=== PATIENT | male | born 1940 | race Caucasian/White ===

== ENCOUNTER 2021-08-13 11:41 | Observation (INO) | payer MEDICARE, SELFPAY ==
[2021-08-13] VITALS (28 sets, daily range): BP systolic 117–153; BP diastolic 54–86; PULSE 15–82; RESP 12–98; TEMP 37.6–37.7; O2SAT 94–100; BMI 30.4
--- NOTE | ~2021-08-13 | CT_ITS ---
EXAMINATION: CTA chest abdomen pelvis DATE: 08/13/2021 14:20 INDICATION: Mid back pain. Near syncope. TECHNIQUE: Computed tomographic angiography (CTA) of the chest, abdomen and pelvis was performed with out and with 100 mL Omnipaque-350 intravenous contrast. Volume-rendered 3D-reconstructions of the aor ta and large arteries were constructed by the technologist on a separate workstation. Automated expos ure control and iterative reconstruction technique were employed. The dose-length product was 1400.21 mGy-cm. COMPARISON: 08/23/2017 FINDINGS: Chest: Mild basilar dependent atelectasis in both lungs. No pneumonia, pulmonary edema, pleural effusion or pneumothorax. Heart size is normal. Coronary artery calcifications and change of prior median sternot harriet and coronary artery bypass grafting. No pericardial effusion. Thoracic aorta is normal in caliber . Small amount of scattered atherosclerotic plaque at the thoracic aorta and left subclavian artery w ithout hemodynamically significant stenosis. No dissection. No pathologically enlarged thoracic lymph adenopathy. Small sliding-type hiatal hernia. Mild upper thoracic dextrocurvature. Mild thoracic spon dylosis. Chronic mild anterior wedging at T8-T12. Abdomen and pelvis: Diffuse hepatic steatosis. Tiny calcified gallstone along the dependent wall of the gallbladder. Tiny hepatic calcification at the dome of the liver consistent with old granulomatous disease. Splenomega ly measuring 16.4 cm in maximal length. There are couple tiny pancreatic parenchymal calcifications s uggesting sequela of chronic pancreatitis. Bilateral adrenal glands and left kidney are normal. 9 mm cyst at the interpolar region of the right kidney. Bladder is normal. Bowels including the appendix a re normal. No free intraperitoneal gas or fluid. No pathologically enlarged abdominal or pelvic lymph adenopathy. Mild lumbar spondylosis. There is calcified atherosclerosis without hemodynamically signi ficant stenosis of the normal caliber aorta and many of the other arteries. No aortic dissection. Inc identally noted are accessory bilateral renal arteries supplying the lower poles. IMPRESSION: 1. No acute intrathoracic, abdominal or pelvic process. 2. Normal caliber aorta with small amount of scattered atherosclerotic plaque and no dissection. 3. Small sliding-type hiatal hernia. Reviewed, dictated and finalized at location A. IMPRESSION: 1. No acute intrathoracic, abdominal or pelvic process. 2. Normal caliber aorta with small amount of scattered atherosclerotic plaque a nd no dissection. 3. Small sliding-type hiatal hernia.
--- NOTE | 2021-08-13 11:50 | ECG_ITS ---
Measurements Intervals [place] Rate: 80 P: 44 [place]: 180 QRS: 16 QRSD: 85 T: 75 QT: 379 QTc: 439 Interpretive Statements SINUS RHYTHM MINIMAL Q WAVES- INFERIOR LEADS BORDERLINE T WAVE ABNORMALITY- ANTEROLAT/HIGH LAT LEADS BORDERLINE ECG Electronically Signed On 08-13-2021 12:34:22 CDT by Hima Doe D.O.
[2021-08-13 12:07] LABS: Basophils Absolute Auto 0.1 K/mm3 (0.0-0.1); Basophils Percent Auto 0.8 % (0.2-1.2); Eosinophils Absolute Auto 0.1 K/mm3 (0-0.3); Hemoglobin 13.8 g/dL (14.0-18.0); Immature Granulocyte Absolute 0.04 K/mm3 (0.00-0.031); Immature Granulocyte Percent A 0.4 % (0-0.5); Lymphocytes Absolute Auto 1.03 K/mm3 (0.9-3.2); Lymphocytes Percent Auto 9.7 % (18.3-44.2); Mean Corpuscular HGB Conc 32.9 g/dl (32-36); Mean Corpuscular Hemoglobin 30.3 pg (26-34); Mean Corpuscular Volume 92.1 fl (80-100); Mean Platelet Volume 9.9 fl (7.4-10.4); Monocytes Absolute Auto 0.8 K/mm3 (0.1-0.6); Monocytes Percent Auto 7.4 % (2.6-8.5); Neutrophils Absolute Auto 8.5 K/mm3 (1.3-6.7); Neutrophils Percent Auto 80.7 % (45.5-73.1); Platelet Count Result 179 k/mm3 (150-375); Red Blood Count 4.56 M/mm3 (4.6-6.20); Red Cell Distribution Width 12.7 % (11.5-14.5); White Blood Count 10.6 K/mm3 (4.5-10.0)
[2021-08-13 12:15] LABS: Alanine Aminotransferase 22 U/L (4-50); Albumin Level 4.3 g/dL (3.5-5.1); Alkaline Phosphatase 55 U/L (38-126); Anion Gap 10 mmol/L (8-16); Aspartate Amino Transferase 26 U/L (17-59); Bilirubin,Total 0.7 mg/dL (0.2-1.3); Blood Urea Nitrogen 10 mg/dL (9-20); Calcium 8.7 mg/dL (8.4-10.2); Carbon Dioxide 22 mmol/L (22-30); Chloride 99 mmol/L (98-107); Estimated CRCL calculation 51 ml/min; Estimated Glomerular Filt Rate > 60; Glucose 227 mg/dL (65-110); Potassium 4.1 mmol/L (3.4-5.0); Sodium 131 mmol/L (137-145)
--- NOTE | 2021-08-13 13:59 | ED.DIZZY ---
HPI - Dizziness General Chief Complaint: Dizziness Stated Complaint: flank pain, dizzy Source: patient Mode of arrival: ambulatory Limitations: no limitations History of Present Illness HPI Narrative: Pt was getting out of shower and getting ready to shave when he got warm and felt like he was going to pass out. Pt had pain in his upper back radiating down his right shoulder and arm that started before the spell. Pt sat on toilet for a bit and eventually made it to his recliner and sat for awhile and his symptoms resoved. MD elicited complaint: lightheadedness and near syncope Onset (ago): hour(s) (5) Timing: sudden onset Severity: severe Description: lightheadedness and near-syncope History of similar symptoms: No Exacerbating factors: nothing Relieving factors: rest Associated symptoms: other (back and right arm pain) Related Data Home Medications Medication Instructions Recorded Confirmed gabapentin 900 PO HS 08/13/21 glimepiride 1 mg DAILY 08/13/21 08/13/21 lovastatin 20 mg DAILY 08/13/21 08/13/21 metformin 500 mg BID 08/13/21 08/13/21 metoprolol succinate 25 PO DAILY 08/13/21 Allergies Allergy/AdvReac Type Severity Reaction Status Date / Time No Known Allergies Allergy Verified 08/13/21 11:49 Review of Systems Review of Systems: All systems reviewed & are unremarkable except as noted in HPI and below PMFSH Family History Family History Sibling Patient's sister is in good health Family history of type 2 diabetes mellitus, Onset Age: 48 Patient's sister is , Onset Age: 70 Father Family history of coronary artery disease, Onset Age: 78 Patient's father is , Onset Age: 78 Mother Hypertension, Onset Age: 72 Social History Social History Smoking status: Never smoker Second hand tobacco smoke exposure: No Alcohol intake: never Exam Const: General: no acute distress Orientation/consciousness: patient oriented x3 HENMT: Head: normal to inspection Eyes: Conjunctivae: conjunctivae normal Neck: Neck: normal visual inspection and no meningeal signs Chest: Chest palpation & inspection: normal inspection of the chest Resp: Effort & Inspection: normal respiratory effort Auscultation: clear to auscultation bilaterally Cardio: Rate: regular rate Rhythm: regular rhythm GI: Auscultation: normal bowel sounds Other: non tender no pulsatile mass Back/Spine/Pelvis: Back: no CVA tenderness Skin: General skin exam: normal color Neuro: General: patient oriented x3, moves all extremities, no meningeal signs and no focal motor deficits Extrem: General: normal to inspection and no clubbing, cyanosis or edema Psych: Appearance: grossly normal Mental Status: mental status grossly normal Thought content: Yes Normal thought content present Course Vital Signs Vital signs: Vital Signs Temperature 100 F H 08/13/21 11:43 Pulse Rate 15 L 08/13/21 11:43 Respiratory Rate 98 H 08/13/21 11:43 Blood Pressure 153/86 H 08/13/21 11:43 Pulse Oximetry 99 08/13/21 11:43 Temperature 100 F H 08/13/21 11:43 Pulse Rate 69 08/13/21 14:02 Respiratory Rate 19 08/13/21 14:02 Blood Pressure 117/59 L 08/13/21 14:02 Pulse Oximetry 98 08/13/21 14:02 MDM - Dizziness Lab Data Result diagrams: 08/13/21 11:56 08/13/21 11:56 Labs: Lab Results 08/13/21 08/13/21 08/13/21 Range/Units 11:56 11:56 11:56 WBC 10.6 H (4.5-10.0) K/mm3 RBC 4.56 L (4.6-6.20) M/mm3 Hgb 13.8 L (14.0-18.0) g/dL Hct 42.0 (42.0-52.0) % MCV 92.1 (80-100) fl MCH 30.3 (26-34) pg MCHC 32.9 (32-36) g/dl RDW 12.7 (11.5-14.5) % Plt Count 179 (150-375) k/mm3 MPV 9.9 (7.4-10.4) fl Immature Gran % (Auto) 0.4 (0-0.5) % Neut % (Auto) 80.7 H (45.5-73.1) % Lymph
[2021-08-13 14:47] LABS: INR 1.1; Prothrombin Time 13.6 Seconds (11.1-14.7)
[2021-08-13 14:48] LABS: Partial Thromboplastin Time 34.7 SECONDS (22.3-36.8)
[2021-08-13 15:00] LABS: Troponin I < 0.012 ng/mL (0.000-0.034)
[2021-08-13 15:20] LABS: SARS-CoV-2 RNA PCR Negative
--- NOTE | 2021-08-13 20:30 | PM.IMHP ---
H&P: HPI History of Present Illness Date/Time: 08/13/21 20:30 Chief Complaint: Near-syncope Narrative: This is an 81-year-old male with past medical history significant for coronary artery disease his status post coronary artery bypass grafting, type 2 diabetes mellitus. Patient presents to the emergency room for evaluation after he had episode of right shoulder and arm pain while he was shaving and after having taking a shower he also felt dizzy however did not pass out. Patient has been in his usual state of health up until this moment he denies any nausea, vomiting ,diarrhea ,abdominal pain, chest pain, shortness of breath, PND, orthopnea, leg swelling, calves pain, no syncope. Preliminary workup has been essentially nonrevealing. Patient has been admitted for further evaluation management and treatment. Review of Systems Review of Systems: Right shoulder and arm pain, near syncope. Constitutional: Constitutional: Denies chills, Denies fatigue, Denies fever(s), Denies night sweats and Denies weakness Eyes: Eyes: Denies change in vision ENT: Denies dysphagia, Denies vertigo, Denies nasal congestion, Denies nasal discharge, Denies nasal obstruction and Denies odynophagia Cardiovascular: Cardiovascular: Denies syncope, Denies pedal edema, Denies edema, Denies claudication, Denies leg edema, Reports lightheadedness, Denies radiating jaw, neck or arm pain, Denies palpitations, Denies dyspnea on exertion and Denies orthopnea Respiratory: Respiratory: Denies cough and Denies dyspnea Gastrointestinal: Gastrointestinal: Denies abdominal pain, Denies dyspepsia, Denies heartburn, Denies diarrhea and Denies nausea Genitourinary: Genitourinary: Denies dysuria Musculoskeletal: Musculoskeletal: Denies back pain, Denies arthralgias and Denies joint swelling Integumentary/Breasts: Skin/Breast: Denies dry skin Neurologic: Denies vertigo, Reports dizziness, Denies syncope, Denies focal weakness and Denies Sensory deficit (Neuro) Psychiatric: Psychiatric: Reports no additional psychiatric complaints and Reports as per HPI Endocrine: Endocrine: Denies cold intolerance, Denies heat intolerance, Denies polyphagia, Denies polydipsia and Denies palpitations Hematologic/Lymphatic: Hematologic/Lymphatic: Reports no additional hematologic/lymphatic complaints and Reports as per HPI Allergic/Immunologic: Allergic/Immunologic: Reports no additional allergic/immunologic complaints and Reports as per HPI [facility] Family History Family History Sibling Patient's sister is in good health Family history of type 2 diabetes mellitus, Onset Age: 48 Patient's sister is , Onset Age: 70 Father Family history of coronary artery disease, Onset Age: 78 Patient's father is , Onset Age: 78 Mother Hypertension, Onset Age: 72 Social History Social History Smoking status: Never smoker Second hand tobacco smoke exposure: No Alcohol intake: never Spiritual care concerns: No Meds Home Medications and Allergies Home Medications Medication Instructions Recorded Confirmed Type aspirin [Adult Aspirin] 81 mg PO DAILY 08/13/21 08/13/21 History cholecalciferol (vitamin D3) 50 mcg PO DAILY 08/13/21 08/13/21 History cyanocobalamin (vitamin B-12) 1,000 mcg PO DAILY 08/13/21 08/13/21 History famotidine 20 mg PO BID 08/13/21 08/13/21 History gabapentin 900 mg PO HS 08/13/21 08/13/21 History glimepiride 1 mg DAILY 08/13/21 08/13/21 History losartan 50 mg PO DAILY 08/13/21 08/13/21 History lovastatin 20 mg DAILY 08/13/21 08/13/21 History metformin 500 mg PO BID 08/13/21 08/13/21 History metoprolol succinate 25 mg PO DAILY 08/13/21 08/13/21 History izgorvla-ijr-HC-lycopen-lutein 1 tablet PO DAILY 08/13/21 08/13/21 History [Centrum Silver] omega-3 fatty acids-fish oil [Fish 1 cap PO DAILY
[2021-08-14] VITALS: PULSE 82
[2021-08-14 04:00] VITALS: PULSE 75
[2021-08-14 06:00] VITALS: BP 149/75; PULSE 67; RESP 16; TEMP 37.3; O2SAT 98
[2021-08-14 08:00] VITALS: PULSE 67; RESP 16; O2SAT 98
[2021-08-14] MEDS: LOVASTATIN 20 MG TABLET BY MOUTH (08:50)
[2021-08-14] MEDS: LOSARTAN POTASSIUM 50 MG TABLET PO (08:50)
[2021-08-14] MEDS: METOPROLOL SUCCINATE EXT REL 25 MG TABCR PO (08:50)
[2021-08-14] MEDS: FAMOTIDINE 20 MG TABLET PO (08:50)
[2021-08-14] MEDS: CYANOCOBALAMIN 1,000 MCG TABLET 1000 MCG PO (08:50)
[2021-08-14] MEDS: ASPIRIN 81 MG CHEWABLE TABLET PO (08:50)
[2021-08-14] MEDS: OMEGA 3 POLYUNSAT FATTY ACIDS 1 GM CAP PO (08:50)
[2021-08-14] MEDS: MULTIVITAMINS /C LUTEIN (CENTRUM SILVER) TABLET *BKC 1 TAB PO (08:50)
[2021-08-14] MEDS: CHOLECALCIFEROL 1,000 UNITS TABLET 2000 UNITS PO (08:50)
[2021-08-14 08:56] LABS: Basophils Absolute Auto 0.1 K/mm3 (0.0-0.1); Basophils Percent Auto 0.8 % (0.2-1.2); Eosinophils Absolute Auto 0.1 K/mm3 (0-0.3); Eosinophils Percent Auto 1.9 % (0-4.4); Hematocrit 39.2 % (42.0-52.0); Hemoglobin 13.5 g/dL (14.0-18.0); Immature Granulocyte Absolute 0.03 K/mm3 (0.00-0.031); Immature Granulocyte Percent A 0.4 % (0-0.5); Lymphocytes Absolute Auto 1.16 K/mm3 (0.9-3.2); Lymphocytes Percent Auto 15.6 % (18.3-44.2); Mean Corpuscular HGB Conc 34.4 g/dl (32-36); Mean Corpuscular Hemoglobin 30.6 pg (26-34); Mean Corpuscular Volume 88.9 fl (80-100); Mean Platelet Volume 10.1 fl (7.4-10.4); Monocytes Absolute Auto 0.8 K/mm3 (0.1-0.6); Monocytes Percent Auto 11.1 % (2.6-8.5); Neutrophils Absolute Auto 5.2 K/mm3 (1.3-6.7); Neutrophils Percent Auto 70.2 % (45.5-73.1); Platelet Count Result 184 k/mm3 (150-375); Red Blood Count 4.41 M/mm3 (4.6-6.20); Red Cell Distribution Width 12.6 % (11.5-14.5); White Blood Count 7.4 K/mm3 (4.5-10.0)
[2021-08-14 09:10] LABS: Alanine Aminotransferase 19 U/L (4-50); Albumin Level 4.3 g/dL (3.5-5.1); Alkaline Phosphatase 48 U/L (38-126); Anion Gap 9 mmol/L (8-16); Aspartate Amino Transferase 23 U/L (17-59); Bilirubin,Total 1.1 mg/dL (0.2-1.3); Blood Urea Nitrogen 10 mg/dL (9-20); Calcium 8.7 mg/dL (8.4-10.2); Carbon Dioxide 26 mmol/L (22-30); Chloride 99 mmol/L (98-107); Estimated CRCL calculation 60 ml/min; Estimated Glomerular Filt Rate > 60; Glucose 172 mg/dL (65-110); Potassium 4.1 mmol/L (3.4-5.0); Sodium 134 mmol/L (137-145)
--- NOTE | 2021-08-14 12:06 | PM.DS ---
DS: Admitting Diagnosis Discharge Date 08/14/2021 Admitting Diagnosis Near syncope DS: Discharge Diagnosis Discharge Diagnosis (1) Near syncope: Code(s): R55 - Syncope and collapse Status: Acute Assessment and Plan: This happened while patient was shaving Likely to be vasovagal in nature Continue to monitor -resolved (2) Atherosclerotic heart disease of [place] coronary artery with angina pectoris: Code(s): I25.119 - Atherosclerotic heart disease of [place] coronary artery with unspecified angina pectoris Status: Acute Assessment and Plan: Chest pain-free Continue to monitor (3) Gastro-esophageal reflux disease with esophagitis: Code(s): K21.0 - Gastro-esophageal reflux disease with esophagitis Status: Acute Assessment and Plan: Continue PPI (4) S/P CABG x 4: Code(s): Z95.1 - Presence of aortocoronary bypass graft Status: Acute Assessment and Plan: Continue aspirin, continue statin, continue losartan, continue beta-carla. Continue to monitor (5) Type 2 diabetes mellitus with peripheral neuropathy: Code(s): E11.42 - Type 2 diabetes mellitus with diabetic polyneuropathy Status: Acute Assessment and Plan: Holding metformin and glimepiride Insulin sliding scale as needed DS: Summary Hospital Course Reason for hospitalization: Near syncope Hospital Course: Patient is an 81 old male with a past medical history of CAD status post CABG-3 way, diabetes mellitus type 2, diet controlled. He presented to the emergency department for further evaluation after developing an episode of right shoulder and arm pain while he was shaving and after he was taking a shower. He did become dizzy however he did not pass out. Patient was able to assist himself to a chair and sit down where he was able to regain orientation. Patient has been in his usual state of health up until that moment. He denies any nausea, vomiting upset stomach diarrhea or abdominal pain. He denies any chest pain or shortness of breath orthopnea, leg swelling or other near syncopal episodes. Preliminary workup in the emergency department was unrevealing however the patient was admitted to the hospitalist service for further evaluation. During the patient's hospitalization patient was agreeable to having home health evaluate him at home for further help with physical therapy and occupational therapy. Patient was alert and oriented was able to answer questions appropriately. No further medical needs require during hospitalization. Therefore the patient be discharged home to follow-up with his PCP. Status at Discharge Cognitive/behavioral status at discharge: Alert and oriented x3 Functional status at discharge: independent ambulation Overall status at discharge: patient is back to baseline Time Spent with Patient Time attestation: Total time spent providing and/or coordinating discharge services: Time spent: Less than 30 minutes Exam Narrative: Patient is laying in bed Const: General: cooperative, comfortable, no acute distress, well developed, alert, awake and other (Well-appearing) Nutritional Appearance: average body habitus Orientation/consciousness: patient oriented x3 HENMT: Head: normal to inspection, normocephalic and atraumatic Ears: hearing grossly normal bilaterally General nose exam: Normal external nose present Face and sinus: normal facial exam Mouth: Yes Normal oral and palatal mucosa present Eyes: General: appearance normal, both eyes and all related structures Alignment and Position: alignment normal Sclera: sclerae normal Pupils: Equal, round and reactive pupils present EOM: EOMs intact bilaterally Neck: Neck: normal visual inspection, full ROM, no lymphadenopathy, supple and no JVD Thyroid: thyroid normal Lymphatic: no lymphadenopathy noted Resp: Effort & Inspection: normal respiratory effort and able to speak in complete sentences Auscultation: clear
== END 2021-08-14 13:09 | disposition home health service (06) ==
LOC: ANHED 15:45 → ANH3MEDSUR 08-14 06:46
PROVIDERS: Admitting Provider Internal Medicine; Emergency Provider Emergency Medicine; PCP Internal Medicine; Visit Provider Nurse Practitioner Family
DX: R55 Syncope and collapse (principal); I25.10 Atherosclerotic heart disease of native coronary artery without angina pectoris; E11.9 Type 2 diabetes mellitus without complications; E11.42 Type 2 diabetes mellitus with diabetic polyneuropathy; K21.00 Gastro-esophageal reflux disease with esophagitis, without bleeding; Z95.1 Presence of aortocoronary bypass graft; Z20.822 Contact with and (suspected) exposure to COVID-19
CPT/HCPCS: 36415; 71275; 74174; 80053; 84484; 85025; 85610; 85730; 93005; 99285; A9270; C9803; G0378; Q9967; U0003; U0005

== ENCOUNTER 2022-04-04 15:58 | Observation (INO) | payer MEDICARE, SELFPAY ==
--- NOTE | ~2022-04-04 | MR_ITS ---
MRI of the brain Clinical History: Altered mental status Technique: Axial and sagittal T1-weighted images were acquired. These were followed by axial T2-weigh edgardo, diffusion weighted, gradient, and FLAIR images. Following intravenous administration of 18 cc Mu ltiHance gadolinium, T1-weighted fat-sat imaging was performed in the axial and coronal planes. Findings: There is no acute infarct, intracranial hemorrhage, or mass lesion. There are minimal chron ic white matter changes in the periventricular white matter bilaterally. Ventricles and subarachnoid spaces are minimally dilated. Abnormal signal present within the right ey eball. Left orbit unremarkable. There is left maxillary sinus disease. Remaining paranasal sinuses an d mastoid air cells are clear. Major intracranial flow voids are intact. Sagittal midline structures are intact. No abnormal postcontrast enhancement. IMPRESSION: No acute intracranial abnormality. Left maxillary sinus disease. Abnormal signal right eyeball. Correlate with ophthalmologic history/examination. Reviewed, dictated and finalized at [facility]. CTOR SEMICONDUCTOR IMPRESSION: No acute intracranial abnormality. Left maxillary sinus disease. Abnormal signal right eyeball. Correlate with ophthalmologic history/examhu ramon
--- NOTE | ~2022-04-04 | XR_ITS ---
EXAMINATION: XR chest 2V DATE: 04/05/2022 08:17 INDICATION: Multiple liver nodules. TECHNIQUE: frontal and lateral views of the chest were obtained. COMPARISON: Chest CT dated 04/04/2022 FINDINGS: The lungs remain clear with no focal airspace opacities, pulmonary edema, pleural effusion or pneumot horax. The cardiomediastinal silhouette is normal. Median sternotomy wires and mediastinal surgical c lips are seen, likely from prior coronary artery bypass grafting. Mild anterior wedging of a few lowe r thoracic vertebral bodies. IMPRESSION: 1. No acute cardiopulmonary disease. Reviewed, dictated and finalized at location A. ER
--- NOTE | ~2022-04-04 | CT_ITS ---
EXAMINATION: CT brain wo con DATE: 04/04/2022 18:25 INDICATION: Altered mental status for past 3 months . TECHNIQUE: Computed tomography (CT) of the head was performed without intravenous contrast. The mA wa s adjusted according to patient size. Iterative reconstruction technique was employed. The dose-lengt h product was 605.33 mGy-cm. COMPARISON: None. FINDINGS: No acute intracranial hemorrhage or extra-axial fluid collection. No hydrocephalus, mass, or herniation. No acute ischemic infarct. Unremarkable dural venous sinus attenuation. No acute osseous abnormality. Near complete left maxillary opacification with a nondependent gas bubble, left anterior ethmoid air cell mucosal thickening, the remaining aerated spaces are clear. Moderate atrophy and chronic white matter change. Atherosclerotic intracranial calcification. Right g lobe silicone injection/prosthesis. Bilateral lens replacements. IMPRESSION: No acute intracranial process. Possible acute sinusitis. Reviewed, dictated and finalized at location K. /WAN ENGINEER
--- NOTE | ~2022-04-04 | US_ITS ---
EXAMINATION: US biopsy liver DATE: 04/06/2022 12:13 INDICATION: Multiple liver masses TECHNIQUE: The procedure including the risks and benefits was discussed with the patient. Risks discu ssed included bleeding and infection. The patient understood the risks and agreed to proceed. The sk in overlying the liver was prepped and draped in usual sterile fashion. Anesthetic was administered with 1% lidocaine subcutaneously. An 18 gauge core biopsy needle was advanced under continuous ultra sound observation to the lesion of interest. 3 core biopsy specimens were obtained. The needle was removed and the entry site was cleaned and dressed. Post procedure ultrasound demonstrated no hemorr christa. FINDINGS: Ultrasound images demonstrate multiple hypoechoic masses scattered throughout the liver. Jimenez bsequent images demonstrate biopsy needle advanced into one of the hyperechoic masses in segment 4A o f the liver. Biopsy specimen demonstrated very dark [id number] tissue suspicious for meta static melanoma. IMPRESSION: 1. Successful Ultrasound-guided biopsy of a large hyperechoic mass in segment 4A of the liver yieldin g very dark nearly black-colored tissue suspicious for metastatic melanoma. Reviewed, dictated and finalized at location A. Y APPLICATOR IMPRESSION: 1. Successful Ultrasound-guided biopsy of a large hyperechoic mass in segment 4 A of the liver yielding very dark nearly black-colored tissue suspicious for me tastatic melanoma.
--- NOTE | ~2022-04-04 | CT_ITS ---
EXAMINATION: CT chest abdomen pelvis w con DATE: 04/04/2022 18:42 INDICATION: AMS, TRANSAMINITIS, concern for metastatic dz . TECHNIQUE: Computed tomography (CT) of the chest, abdomen, and pelvis was performed with 100 mL Omnip aque-350 intravenous contrast. Automated exposure control and iterative reconstruction technique were employed. The dose-length product was 1238.62 mGy-cm. COMPARISON: 08/13/2021 FINDINGS: Thoracic aorta: No significant dilation or calcification. Lung parenchyma and airways: Senescent changes. Thoracic inlet, axillae and chest wall: No thyroid or soft tissue mass. No axillary lymphadenopathy. Mediastinum: No mass or lymphadenopathy. Heart and pericardium: Normal heart size. Prior CABG. No pericardial effusion. Coronary artery calcifications: Moderate. Pleura: No effusion or mass. Thoracic bones: No acute osseous finding in the chest. ABDOMEN/PELVIS: Liver: Hepatomegaly. Innumerable hyperenhancing liver masses several of which are large and necrotic. Biliary/Gallbladder: Gallbladder is partially collapsed with mild wall thickening, a nonspecific find ing in the setting of liver disease. Small gallstone. No bile duct dilation. Pancreas: Pancreatic atrophy and chronic calcification. No mass. Spleen: Normal. Adrenals:No mass. Kidneys: No suspicious mass, stone, or hydronephrosis. Small simple right midpole cyst. GI tract: No small or large bowel dilation. Chronic some mucosal fat deposition in the ascending colo n and cecum. Normal appendix. Mesentery/Peritoneum: No mass or free air. Small volume perihepatic and perisplenic fluid. Retroperitoneum: No mass. Atherosclerotic abdominal aortic and/or arterial calcifications. Pelvis: Surgically absent prostate. Lower pelvic surgical clips. Moderate volume free pelvic fluid. Soft Tissues: Mild subcutaneous body wall edema. Abdominopelvic bones: No acute osseous finding in the abdomen/pelvis. IMPRESSION: Hepatomegaly with innumerable hepatic masses, several of which are large and necrotic. No primary sit e identified. Small volume ascites. Reviewed, dictated and finalized at location K. CTOR TRIAL IMPRESSION: Hepatomegaly with innumerable hepatic masses, several of which are large and ne crotic. No primary site identified. Small volume ascites.
--- NOTE | 2022-04-04 15:57 | ECG_ITS ---
Measurements Intervals [place] Rate: 81 P: 181 [place]: 165 QRS: 21 QRSD: 94 T: 11 QT: 350 QTc: 408 Interpretive Statements SINUS RHYTHM LOW-VOLTAGE QRS IN PRECORDIAL LEADS CANNOT RULE OUT INFERIOR MYOCARDIAL INFARCTION , PROBABLY OLD NO PREVIOUS ECG AVAILABLE FOR COMPARISON Electronically Signed On 04-05-2022 16:42:24 OCCUPATIONAL HEALTH COORDINATOR by Ernesto Conklin M.D.
[2022-04-04 15:58] VITALS: BP 147/80; PULSE 81; RESP 18; TEMP 36.2; O2SAT 92
[2022-04-04 16:31] LABS: Basophils Absolute Auto 0.1 K/mm3 (0.0-0.1); Basophils Percent Auto 0.6 % (0.2-1.2); Eosinophils Absolute Auto 0.1 K/mm3 (0-0.3); Eosinophils Percent Auto 1.4 % (0-4.4); Hematocrit 39.5 % (42.0-52.0); Hemoglobin 13.1 g/dL (14.0-18.0); Immature Granulocyte Absolute 0.03 K/mm3 (0.00-0.031); Immature Granulocyte Percent A 0.4 % (0-0.5); Lymphocytes Absolute Auto 0.89 K/mm3 (0.9-3.2); Lymphocytes Percent Auto 11.3 % (18.3-44.2); Mean Corpuscular HGB Conc 33.2 g/dl (32-36); Mean Corpuscular Hemoglobin 30.3 pg (26-34); Mean Corpuscular Volume 91.2 fl (80-100); Monocytes Absolute Auto 0.8 K/mm3 (0.1-0.6); Monocytes Percent Auto 9.6 % (2.6-8.5); Neutrophils Percent Auto 76.7 % (45.5-73.1); Platelet Count Result 175 k/mm3 (150-375); Red Blood Count 4.33 M/mm3 (4.6-6.20); Red Cell Distribution Width 15.2 % (11.5-14.5); White Blood Count 7.9 K/mm3 (4.5-10.0)
[2022-04-04 16:33] LABS: Appearance Urine Slightly Cloudy (Clear); Bilirubin Urine 3+ (Negative); Blood Urine Negative (Negative); Glucose Urine UA Trace mg/dL (Negative); Ketones Urine 1+ mg/dL (Negative); Leukocyte Esterase Ur Negative LEU/UL (Negative); Nitrate Urine Positive (Negative); Protein Urine Trace mg/dL (Negative); Specific Grav Ur 1.025 (1.001-1.035); pH Urine 5.5 (5.0-9.0)
[2022-04-04 16:38] LABS: Bacteria Urine Trace /hpf; Mucus Urine Rare /lpf; RBC Urine 0-2 /hpf (0-2); Squamous Epithelial Cell Urine Rare /hpf (Few); WBC Urine 0-3 /hpf
[2022-04-04 16:39] LABS: Add Urine Microscopic? YES; Color Urine Dark Orange (Yellow)
[2022-04-04 16:42] LABS: Alanine Aminotransferase 245 U/L (6-50); Albumin Level 3.4 g/dL (3.5-5.1); Alkaline Phosphatase 223 U/L (38-126); Anion Gap 3 mmol/L (8-16); Aspartate Amino Transferase 607 U/L (17-59); Bilirubin,Total 5.1 mg/dL (0.2-1.3); Blood Urea Nitrogen 16 mg/dL (9-20); Calcium 10.2 mg/dL (8.4-10.2); Carbon Dioxide 27 mmol/L (22-30); Chloride 98 mmol/L (98-107); Estimated CRCL calculation 55 ml/min; Estimated Glomerular Filt Rate > 60; Glucose 149 mg/dL (65-110); Potassium 3.6 mmol/L (3.4-5.0); Sodium 128 mmol/L (137-145)
[2022-04-04 16:44] LABS: INR 1.2; Partial Thromboplastin Time 36.5 SECONDS (22.3-36.8); Prothrombin Time 14.8 Seconds (11.1-14.7)
--- NOTE | 2022-04-04 18:12 | ED.GENADULT ---
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 Per , patient has been eating solid food less for the past 3 months because it tastes bad. For the last 3 months he has only been drinking water, because other flavored liquids did not taste good. He denied headache, trauma, nausea, vomiting, abdominal pain, chest pain, shortness of breath, dysuria, diarrhea, sick contacts. 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 Past surgical history: CABG, hernia repair Medications: Aspirin, metformin, losartan, metoprolol, gabapentin Allergies: No known drug allergies Social: No smoking, alcohol, recreational drugs Related Data Home Medications Medication Instructions Recorded Confirmed aspirin 81 mg chewable tablet 81 mg PO DAILY 08/13/21 10/07/21 cholecalciferol (vitamin D3) 50 50 mcg PO DAILY 08/13/21 10/07/21 mcg (2,000 unit) capsule cyanocobalamin (vitamin B-12) 1,000 mcg PO DAILY 08/13/21 10/07/21 1,000 mcg tablet glimepiride 2 mg tablet 1 mg DAILY 08/13/21 10/07/21 lovastatin 20 mg tablet 20 mg DAILY 08/13/21 10/07/21 metoprolol succinate 25 mg 25 mg PO DAILY 08/13/21 10/07/21 tablet,extended release 24 hr wxlsmydk-jem-wsvoj acid 0.4 1 tablet PO DAILY 08/13/21 10/07/21 mg-lycopene 300 mcg-lutein 250 mcg tablet (Centrum Silver) omega-3 fatty acids-fish oil 340 1 cap PO DAILY 08/13/21 10/07/21 mg-1,000 mg capsule (Fish Oil) Allergies Allergy/AdvReac Type Severity Reaction Status Date / Time No Known Allergies Allergy Verified 10/07/21 12:20 Review of Systems Review of Systems: See HPI PMFSH Family History Family History Sibling Patient's sister is in good health Family history of type 2 diabetes mellitus, Onset Age: 48 Patient's sister is , Onset Age: 70 Father Family history of coronary artery disease, Onset Age: 78 Patient's father is , Onset Age: 78 Mother Hypertension, Onset Age: 72 Social History Social History Smoking status: Never smoker Second hand tobacco smoke exposure: No Alcohol intake: never Spiritual care concerns: No Comments See HPI Exam Narrative: APPEARANCE: Alert, calm and cooperative, no acute distress, phonating, sitting comfortably during visit, elderly HEAD: atraumatic EYES: Extra ocular movements intact, no conjunctival injection NOSE: Normal no drainage NECK: Supple, without meningismus RESPIRATORY: Lungs clear to auscultation bilaterally, no wheezes/rales/rhonchi, breathing comfortably CARDIOVASCULAR: Regular rate and rhythm, no visible jugular venous distension ABDOMINAL: Soft, nontender, nondistended, no guarding, no rebound/peritoneal signs, no costovertebral tenderness to palpation BACK: no midline tenderness to palpation, no step offs EXTREMITIES: No edema, palpable peripheral pulses, warm, well perfused, no tenderness to bilateral calves. NEURO: Alert and oriented, moving all extremities symmetrically, normal finger nose finger, no pronator drift, 5/5 strength throughout SKIN:: Warm, dry. Normal color PSYCHIATRIC: Normal affect/mood Course Reevaluation(s) Reevaluation #1: CT abdomen pelvis results reviewed, notable for several masses to the liver concerning for metastatic disease, with evidence of cirrhosis and ascites. Patient and family updated on findings, expressed understanding. Recommendation for medical admission for further work-up will be pursued. Family and patient communicated, expressed understanding and amenable fo
[2022-04-04 19:26] VITALS: BP 141/70; PULSE 77; RESP 12; O2SAT 100
[2022-04-04 20:46] VITALS: BP 135/75; PULSE 75; RESP 16; O2SAT 96
[2022-04-04 21:07] LABS: Ammonia < 9 umol/L (9-30)
[2022-04-04 21:26] LABS: SARS-CoV-2 RNA PCR Negative
--- NOTE | 2022-04-04 21:37 | PM.IMHP ---
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 HPI and review medical and surgical history was obtained from review of records, ER report and nursing report. The patient himself is only oriented to self. The patient does seem to realize that he has been more confused ?more recently. The patient's told nursing staff that the patient has been progressively more confused for the last month. He became so confused that he is only oriented to self in the family brought him in for evaluation. He has been having decreased oral intake for the last 3 months. He reports that both food and flavored drinks taste gross. Thusly is only been consuming mostly water. Despite is decreased appetite patient's weight has remained relatively stable in comparison to prior values in August and September. He denied having any abdominal pain but on exam patient had tenderness at the right mid axillary line is an inch below the lower ribs with what feels like hepatomegaly on exam. Patient denies having any diarrhea or changes in bowel habits but again is a difficult historian. He denies any headache or visual changes. He denies any history of CVA. On exam patient did seem to have some mild facial asymmetry with droop of the left side of the face. CT of the head performed in the ER demonstrated no acute intercranial process. Possible acute left maxillary sinusitis but patient does not have any sinus tenderness. Also moderate atrophy and chronic white matter changes as well as right globe silicone prosthesis/injections. In the ER CT of the abdomen pelvis demonstrated in innumerable hepatic masses several of which are large and necrotic. This is surprising given the patient had normal LFTs and normal CTA of the chest abdomen pelvis in August of 2021. Patient also has ketones in his urine and some mild hyponatremia consistent with hyponatremia due to hypovolemia. Patient was admitted in the setting for IV high duration and IR guided liver biopsy. Review of Systems Review of Systems: The patient is unable to provide review of systems. He is only oriented to self. 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 Prostate cancer Type 2 diabetes mellitus with peripheral neuropathy Hemoglobin A1c 6.6% September 2021 Surgical History Surgical History (Updated 04/04/22 @ 21:52 by Serina Cochran DO) History of bilateral inguinal hernia repair (~1967) History of cardiac catheterization Cardiac catheterization 1992 demonstrating modest disease with less than 50% stenosis, repeat catheterization in 2018 demonstrated four-vessel disease patient was referred for CABG, posterior basal wall hypokinesis noted History of melanoma excision Right retina History of prostatectomy (~2004) S/P CABG x 4 (~2018) Cardiac catheterization demonstrating chronic occlusion of RCA 100% with distal [id number] collateral flow to RPDA and RPL, left main stenosis 90%, lad mid size vessel small ramus 99% occluded Family History Family History Sibling Patient's sister is in good health Family history of type 2 diabetes mellitus, Onset Age: 48 Patient's sister is , Onset Age: 70 Father Family history of coronary artery disease, Onset Age: 78 Patient's father is , Onset Age: 78 Mothe
[2022-04-04 21:40] VITALS: BP 133/63; PULSE 73; RESP 17; TEMP 36.3; O2SAT 98
[2022-04-04] MEDS: SODIUM CHLORIDE 0.9% IV 1,000 ML 125 ML IV CONT (22:10)
--- NOTE | 2022-04-04 22:48 | ADMGEN ---
This patient, Israel Donaldson, was admitted to [address] [place] [address] Room 305-02 at 2140. Patient/family oriented to hospital policies and general routines including ID bracelet, bed and alarms, visiting hours, pain management, procedures, bathroom and other care routines, personal items, smoking policy, room service/diet, and visiting hours. Information on how to activate the Rapid Response Team has been discussed. Patient/Family are encouraged to report perceived risks to care and to ask questions if they do not understand what they are told or what they should do.
[2022-04-05] VITALS (9 sets, daily range): BP systolic 130–132; BP diastolic 56–60; PULSE 70–90; RESP 17; TEMP 36.3–36.4; O2SAT 98–99; BMI 29.3
[2022-04-05 07:27] LABS: Alanine Aminotransferase 233 U/L (6-50); Albumin Level 2.9 g/dL (3.5-5.1); Alkaline Phosphatase 186 U/L (38-126); Anion Gap 5 mmol/L (8-16); Aspartate Amino Transferase 535 U/L (17-59); Bilirubin,Total 4.8 mg/dL (0.2-1.3); Blood Urea Nitrogen 15 mg/dL (9-20); Calcium 9.6 mg/dL (8.4-10.2); Carbon Dioxide 24 mmol/L (22-30); Chloride 101 mmol/L (98-107); Estimated CRCL calculation 55 ml/min; Estimated Glomerular Filt Rate > 60; Glucose 77 mg/dL (65-110); Potassium 3.6 mmol/L (3.4-5.0); Sodium 130 mmol/L (137-145)
[2022-04-05 08:46] LABS: Glucose Point of Care 86 mg/dl (65-105)
[2022-04-05 09:13] LABS: Basophils Percent Auto 0.5 % (0.2-1.2); Eosinophils Absolute Auto 0.1 K/mm3 (0-0.3); Eosinophils Percent Auto 0.7 % (0-4.4); Hematocrit 40.2 % (42.0-52.0); Hemoglobin 13.6 g/dL (14.0-18.0); Immature Granulocyte Absolute 0.02 K/mm3 (0.00-0.031); Immature Granulocyte Percent A 0.3 % (0-0.5); Lymphocytes Absolute Auto 0.51 K/mm3 (0.9-3.2); Mean Corpuscular HGB Conc 33.8 g/dl (32-36); Mean Corpuscular Hemoglobin 30.6 pg (26-34); Mean Corpuscular Volume 90.5 fl (80-100); Mean Platelet Volume 10.6 fl (7.4-10.4); Monocytes Absolute Auto 0.8 K/mm3 (0.1-0.6); Monocytes Percent Auto 10.2 % (2.6-8.5); Neutrophils Percent Auto 81.3 % (45.5-73.1); Platelet Count Result 174 k/mm3 (150-375); Red Blood Count 4.44 M/mm3 (4.6-6.20); Red Cell Distribution Width 15.6 % (11.5-14.5); White Blood Count 7.3 K/mm3 (4.5-10.0)
[2022-04-05 09:23] LABS: Ammonia < 9 umol/L (9-30)
[2022-04-05 09:24] LABS: Anion Gap 9 mmol/L (8-16); Blood Urea Nitrogen 15 mg/dL (9-20); Carbon Dioxide 21 mmol/L (22-30); Chloride 105 mmol/L (98-107); Estimated CRCL calculation 61 ml/min; Estimated Glomerular Filt Rate > 60; Glucose 88 mg/dL (65-110); Potassium 3.7 mmol/L (3.4-5.0); Sodium 135 mmol/L (137-145)
[2022-04-05] MEDS: MULTIVITAMINS /C LUTEIN (CENTRUM SILVER) TABLET *BKC 1 TAB PO (11:27)
[2022-04-05] MEDS: CHOLECALCIFEROL 1,000 UNITS TABLET 2000 UNITS PO (11:27)
[2022-04-05] MEDS: LOSARTAN POTASSIUM 50 MG TABLET PO (11:27)
[2022-04-05] MEDS: CYANOCOBALAMIN 1,000 MCG TABLET 1000 MCG PO (11:27)
[2022-04-05] MEDS: LOVASTATIN 20 MG TABLET PO (11:27)
[2022-04-05] MEDS: OMEGA 3 POLYUNSAT FATTY ACIDS 1 GM CAP PO (11:28)
[2022-04-05] MEDS: METOPROLOL SUCCINATE EXT REL 25 MG TABCR PO (11:32)
[2022-04-05] MEDS: SODIUM CHLORIDE 0.9% IV 1,000 ML 125 ML IV CONT ×2 (11:42→20:14)
--- NOTE | 2022-04-05 12:09 | PM.IMPN ---
Progress Note: A&P Assessment and Plan (1) Mass of multiple sites of liver: Code(s): R16.0 - Hepatomegaly, not elsewhere classified Status: Acute Assessment and Plan: Question etiology. CT-guided biopsy plan. Oncology consult. (2) Transaminitis: Code(s): R74.01 - Elevation of levels of liver transaminase levels Status: Acute Assessment and Plan: Secondary to above (3) Acute hyponatremia: Code(s): E87.1 - Hypo-osmolality and hyponatremia Status: Acute Assessment and Plan: Sodium level improved (4) Type 2 diabetes mellitus with peripheral neuropathy: Code(s): E11.42 - Type 2 diabetes mellitus with diabetic polyneuropathy Status: Acute Assessment and Plan: Sliding scale insulin as needed (5) Dehydration: Code(s): E86.0 - Dehydration Status: Acute Assessment and Plan: IV fluids (6) Ascites: Qualifiers: Ascites type: malignant Qualified Code(s): R18.0 - Malignant ascites Code(s): R18.8 - Other ascites Status: Acute Assessment and Plan: See plan above (7) Altered mental status: Qualifiers: Altered mental status type: disorientation Qualified Code(s): R41.0 - Disorientation, unspecified Code(s): R41.82 - Altered mental status, unspecified Status: Acute Assessment and Plan: Question etiology. No lesions noted in the brain. Question baseline. Monitor. No focal neurological deficits. Imaging negative Subjective Date/time seen: 04/05/22 12:09 Patient seems confused today. Question baseline. No focal neurological deficits. Exam Narrative: Weight 90.2 kg BMI 29.4 Const: Other: Lying flat in bed, the condition but no acute distress HENMT: Other: Mucous membranes are tacky, no oral pharyngeal erythema, fair dentition Eyes: Other: No obvious scleral icterus, no significant conjunctival pallor, absent pupillary reflex on the right, left eye is reactive and has evidence of lens replacement Neck: Other: No tender lymphadenopathy, trachea midline Resp: Other: Equal expansion, nontender palpation Cardio: Other: Clear to auscultation bilaterally, no increased work of breathing GI: Other: Suspected hepatomegaly, tenderness and the almost right mid axillary line below the anterior ribs, otherwise abdomen is soft and nontender, normoactive bowel sounds, evidence of anterior lower abdominal scar from approximately 3 in below the umbilicus down to the pubis, as prior by inguinal scars are also noted : General: Yes bladder normal to palpation Male General Exam: Yes normal external exam Skin: Other: Generalized pallor, non jaundice Neuro: Other: Alert oriented to self, slowed responses, left nasal labial droop, expected abnormalities of the left eye exam due to prior surgery, follow simple commands, tongue is midline, no pronator drift, equal strength bilateral electronic train control technician, intact DTR, no gross motor deficits noted on limited exam Extrem: Other: No clubbing, cyanosis or edema Psych: Appearance: grossly normal Speech and movement: Clear speech present, Slowed speech present (Psych) and Slowed movement present (Neuro) Affect: Sad affect present and Blunted affect present Attitude: cooperative Thought process: Impoverished thought process present Objective Data Vital Signs Vital Signs: Vital Signs - 24 hr 04/04/22 15:58 04/04/22 19:26 04/04/22 20:46 Temperature 97.1 F L Pulse Rate 81 77 75 Respiratory Rate 18 12 16 Blood Pressure 147/80 H 141/70 H 135/75 Pulse Oximetry 92 100 96 Oxygen Delivery Room Air 04/04/22 21:40 04/05/22 00:00 04/05/22 04:00 Temperature 97.4 F L Pulse Rate 73 82 82 Respiratory Rate 17 Blood Pressure 133/63 Pulse Oximetry 98 Oxygen Delivery 04/05/22 06:00 04/05/22 11:32 Temperature 97.6 F Pulse Rate 76 78 Respiratory Rate 17 Blood Pressure 130/60 Pulse Oximetry 99 Oxygen Deliv
[2022-04-05 12:34] LABS: Glucose Point of Care 82 mg/dl (65-105)
--- NOTE | 2022-04-05 13:36 | PDONCCONNOTE ---
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 also history of prostate cancer treated by resection sometime before that no recent oncological follow-up CT scan of the brain did not show any obvious pathology and has no localizing symptoms - Medical History Medical History (Last Updated 04/04/22 @ 21:52 by Serina Cochran DO) Atherosclerotic heart disease of [place] coronary artery with angina pectoris Diastolic dysfunction Essential hypertension Gastro-esophageal reflux disease with esophagitis 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 Prostate cancer Type 2 diabetes mellitus with peripheral neuropathy Hemoglobin A1c 6.6% September 2021 - Surgical History Surgical History (Last Updated 04/04/22 @ 21:52 by Serina Cochran DO) History of bilateral inguinal hernia repair Onset Date: ~1967 History of cardiac catheterization Cardiac catheterization 1992 demonstrating modest disease with less than 50% stenosis, repeat catheterization in 2018 demonstrated four-vessel disease patient was referred for CABG, posterior basal wall hypokinesis noted History of melanoma excision Right retina History of prostatectomy Onset Date: ~2004 S/P CABG x 4 Onset Date: ~2018 Cardiac catheterization demonstrating chronic occlusion of RCA 100% with distal [id number] collateral flow to RPDA and RPL, left main stenosis 90%, lad mid size vessel small ramus 99% occluded - Family History Family History (Last Reviewed 04/04/22 @ 21:55 by Serina Cochran DO) Sibling Patient's sister is in good health Family history of type 2 diabetes mellitus, Onset Age: 48 Patient's sister is , Onset Age: 70 Father Family history of coronary artery disease, Onset Age: 78 Patient's father is , Onset Age: 78 Mother Hypertension, Onset Age: 72 - Social History Social History (Last Updated 04/05/22 @ 04:22 by Serina Cochran DO) Alcohol Use: Alcohol intake: never Substance Use: Substance use: never Others: Spiritual care concerns: No Smoking Status: Smoking status: Never smoker Second hand tobacco smoke exposure: No - Medications Active Medications Generic Name Dose Route Start Last Admin Trade Name Thomasq PRN Reason Stop Dose Admin Cyanocobalamin 1,000 mcg 04/05/22 09:00 04/05/22 11:27 Cyanocobalamin 1,000 Mcg Tablet PO 1,000 mcg DAILY TANIA Administration Dextrose 12.5 gm 04/04/22 22:14 Dextrose 50% 25 Gm/50 Ml Syringe IV PUSH PRN PRN Hypoglycemia Protocol Fish Oil 1 gm 04/05/22 09:00 04/05/22 11:28 [place] 3 Polyunsat Fatty Acids 1 Gm Cap PO 1 gm DAILY TANIA Administration Glucagon 1 mg 04/04/22 22:14 Glucagon For Inj 1 Mg Vial IM PRN PRN Hypoglycemia Protocol Glucose 15 gm 04/04/22 22:14 Glucose Oral Gel 15 Gm Of Glucse In 37.5 Gm Tube PO PRN PRN Hypoglycemia Protocol Sodium Chloride 1,000 mls @ 125 mls/hr 04/04/22 20:00 04/05/22 12:40 Normal Saline Iv IV CONT Not Given .Q8H TANIA Dextrose 1,000 mls @ 100 mls/hr 04/04/22 22:14 Dextrose 5% 1,000 Ml IVPB PRN PRN Hypoglycemia Protocol Insulin Aspart 2 - 5 units 04/05/22 08:00 04/05/22 12:40 Insulin Aspart (*Bkc) 100 Units/Ml SUB-Q Not Given TIDWM TANIA Protocol Losartan Potassium 50 mg 04/05/22 09:00 04/05/22
[2022-04-05 17:28] LABS: Glucose Point of Care 93 mg/dl (65-105)
[2022-04-06] VITALS (10 sets, daily range): BP systolic 111–150; BP diastolic 58–83; PULSE 64–88; RESP 15–18; TEMP 35.9–36.3; O2SAT 98–99
[2022-04-06] MEDS: SODIUM CHLORIDE 0.9% IV 1,000 ML 125 ML IV CONT ×2 (06:18→16:36)
[2022-04-06 08:01] LABS: Glucose Point of Care 102 mg/dl (65-105)
--- NOTE | 2022-04-06 10:25 | PM.IMPN ---
Progress Note: A&P Assessment and Plan (1) Mass of multiple sites of liver: Code(s): R16.0 - Hepatomegaly, not elsewhere classified Status: Acute Assessment and Plan: Question etiology. CT-guided biopsy plan. Oncology consult. (2) Transaminitis: Code(s): R74.01 - Elevation of levels of liver transaminase levels Status: Acute Assessment and Plan: Secondary to above (3) Acute hyponatremia: Code(s): E87.1 - Hypo-osmolality and hyponatremia Status: Acute Assessment and Plan: Sodium level improved (4) Type 2 diabetes mellitus with peripheral neuropathy: Code(s): E11.42 - Type 2 diabetes mellitus with diabetic polyneuropathy Status: Acute Assessment and Plan: Sliding scale insulin as needed (5) Dehydration: Code(s): E86.0 - Dehydration Status: Acute Assessment and Plan: IV fluids (6) Ascites: Qualifiers: Ascites type: malignant Qualified Code(s): R18.0 - Malignant ascites Code(s): R18.8 - Other ascites Status: Acute Assessment and Plan: See plan above (7) Altered mental status: Qualifiers: Altered mental status type: disorientation Qualified Code(s): R41.0 - Disorientation, unspecified Code(s): R41.82 - Altered mental status, unspecified Status: Acute Assessment and Plan: Question etiology. No lesions noted in the brain. Question baseline. Monitor. No focal neurological deficits. Imaging negative Subjective Date/time seen: 04/06/22 10:25 No complaints Exam Narrative: Weight 90.2 kg BMI 29.4 Const: Other: Lying flat in bed, the condition but no acute distress HENMT: Other: Mucous membranes are tacky, no oral pharyngeal erythema, fair dentition Eyes: Other: No obvious scleral icterus, no significant conjunctival pallor, absent pupillary reflex on the right, left eye is reactive and has evidence of lens replacement Neck: Other: No tender lymphadenopathy, trachea midline Resp: Other: Equal expansion, nontender palpation Cardio: Other: Clear to auscultation bilaterally, no increased work of breathing GI: Other: Suspected hepatomegaly, tenderness and the almost right mid axillary line below the anterior ribs, otherwise abdomen is soft and nontender, normoactive bowel sounds, evidence of anterior lower abdominal scar from approximately 3 in below the umbilicus down to the pubis, as prior by inguinal scars are also noted : General: Yes bladder normal to palpation Male General Exam: Yes normal external exam Skin: Other: Generalized pallor, non jaundice Neuro: Other: Alert oriented to self, slowed responses, left nasal labial droop, expected abnormalities of the left eye exam due to prior surgery, follow simple commands, tongue is midline, no pronator drift, equal strength bilateral single resource boss, intact DTR, no gross motor deficits noted on limited exam Extrem: Other: No clubbing, cyanosis or edema Psych: Appearance: grossly normal Speech and movement: Clear speech present, Slowed speech present (Psych) and Slowed movement present (Neuro) Affect: Sad affect present and Blunted affect present Attitude: cooperative Thought process: Impoverished thought process present Objective Data Vital Signs Vital Signs: Vital Signs - 24 hr 04/05/22 11:32 04/05/22 10:35 04/05/22 10:59 Temperature Pulse Rate 78 80 Respiratory Rate Blood Pressure Pulse Oximetry Oxygen Delivery Room Air 04/05/22 16:00 04/06/22 00:00 04/05/22 20:00 Temperature Pulse Rate 80 64 70 Respiratory Rate Blood Pressure Pulse Oximetry Oxygen Delivery 04/05/22 22:00 04/05/22 20:00 04/06/22 04:00 Temperature 97.3 F L Pulse Rate 77 70 Respiratory Rate 17 Blood Pressure 132/56 L Pulse Oximetry 98 Oxygen Delivery Room Air 04/06/22 06:00 Temperature 97.4 F L Pulse Rate 81 Respiratory Rate 17 Blood Pressur
[2022-04-06 13:07] LABS: Glucose Point of Care 116 mg/dl (65-105)
[2022-04-06] MEDS: METOPROLOL SUCCINATE EXT REL 25 MG TABCR PO (14:31)
[2022-04-06] MEDS: CHOLECALCIFEROL 1,000 UNITS TABLET 2000 UNITS PO (14:31)
[2022-04-06] MEDS: LOVASTATIN 20 MG TABLET PO (14:31)
[2022-04-06] MEDS: MULTIVITAMINS /C LUTEIN (CENTRUM SILVER) TABLET *BKC 1 TAB PO (14:31)
[2022-04-06] MEDS: LOSARTAN POTASSIUM 50 MG TABLET PO (14:31)
[2022-04-06] MEDS: OMEGA 3 POLYUNSAT FATTY ACIDS 1 GM CAP PO (14:32)
[2022-04-06] MEDS: CYANOCOBALAMIN 1,000 MCG TABLET 1000 MCG PO (14:32)
[2022-04-06 16:41] LABS: Glucose Point of Care 124 mg/dl (65-105)
[2022-04-06 21:22] LABS: Glucose Point of Care 124 mg/dl (65-105)
[2022-04-07] MEDS: SODIUM CHLORIDE 0.9% IV 1,000 ML 125 ML IV CONT ×3 (03:48→17:06)
[2022-04-07 06:23] VITALS: BP 116/65; PULSE 72; RESP 16; TEMP 36.7; O2SAT 97
[2022-04-07 08:15] LABS: Glucose Point of Care 134 mg/dl (65-105)
[2022-04-07 10:06] VITALS: PULSE 70
[2022-04-07] MEDS: METOPROLOL SUCCINATE EXT REL 25 MG TABCR PO (10:06)
[2022-04-07] MEDS: CHOLECALCIFEROL 1,000 UNITS TABLET 2000 UNITS PO (10:06)
[2022-04-07] MEDS: LOSARTAN POTASSIUM 50 MG TABLET PO (10:06)
[2022-04-07] MEDS: CYANOCOBALAMIN 1,000 MCG TABLET 1000 MCG PO (10:06)
[2022-04-07] MEDS: OMEGA 3 POLYUNSAT FATTY ACIDS 1 GM CAP PO (10:06)
[2022-04-07] MEDS: LOVASTATIN 20 MG TABLET PO (10:06)
[2022-04-07] MEDS: MULTIVITAMINS /C LUTEIN (CENTRUM SILVER) TABLET *BKC 1 TAB PO (10:07)
--- NOTE | 2022-04-07 11:42 | PM.IMPN ---
Progress Note: A&P Assessment and Plan (1) Mass of multiple sites of liver: Code(s): R16.0 - Hepatomegaly, not elsewhere classified Status: Acute Assessment and Plan: Question etiology. CT-guided biopsy plan. Oncology consult. (2) Transaminitis: Code(s): R74.01 - Elevation of levels of liver transaminase levels Status: Acute Assessment and Plan: Secondary to above (3) Acute hyponatremia: Code(s): E87.1 - Hypo-osmolality and hyponatremia Status: Acute Assessment and Plan: Sodium level improved (4) Type 2 diabetes mellitus with peripheral neuropathy: Code(s): E11.42 - Type 2 diabetes mellitus with diabetic polyneuropathy Status: Acute Assessment and Plan: Sliding scale insulin as needed (5) Dehydration: Code(s): E86.0 - Dehydration Status: Acute Assessment and Plan: IV fluids (6) Ascites: Qualifiers: Ascites type: malignant Qualified Code(s): R18.0 - Malignant ascites Code(s): R18.8 - Other ascites Status: Acute Assessment and Plan: See plan above (7) Altered mental status: Qualifiers: Altered mental status type: disorientation Qualified Code(s): R41.0 - Disorientation, unspecified Code(s): R41.82 - Altered mental status, unspecified Status: Acute Assessment and Plan: Question etiology. No lesions noted in the brain. Question baseline. Monitor. No focal neurological deficits. Imaging negative Subjective Date/time seen: 04/07/22 11:42 No new complaints still little confused. Exam Narrative: Weight 90.2 kg BMI 29.4 Const: Other: Lying flat in bed, the condition but no acute distress HENMT: Other: Mucous membranes are tacky, no oral pharyngeal erythema, fair dentition Eyes: Other: No obvious scleral icterus, no significant conjunctival pallor, absent pupillary reflex on the right, left eye is reactive and has evidence of lens replacement Neck: Other: No tender lymphadenopathy, trachea midline Resp: Other: Equal expansion, nontender palpation Cardio: Other: Clear to auscultation bilaterally, no increased work of breathing GI: Other: Suspected hepatomegaly, tenderness and the almost right mid axillary line below the anterior ribs, otherwise abdomen is soft and nontender, normoactive bowel sounds, evidence of anterior lower abdominal scar from approximately 3 in below the umbilicus down to the pubis, as prior by inguinal scars are also noted : General: Yes bladder normal to palpation Male General Exam: Yes normal external exam Skin: Other: Generalized pallor, non jaundice Neuro: Other: Alert oriented to self, slowed responses, left nasal labial droop, expected abnormalities of the left eye exam due to prior surgery, follow simple commands, tongue is midline, no pronator drift, equal strength bilateral manager call center, intact DTR, no gross motor deficits noted on limited exam Extrem: Other: No clubbing, cyanosis or edema Psych: Appearance: grossly normal Speech and movement: Clear speech present, Slowed speech present (Psych) and Slowed movement present (Neuro) Affect: Sad affect present and Blunted affect present Attitude: cooperative Thought process: Impoverished thought process present Objective Data Vital Signs Vital Signs: Vital Signs - 24 hr 04/06/22 11:59 04/06/22 14:31 04/06/22 12:00 Temperature Pulse Rate 88 78 85 Respiratory Rate 15 Blood Pressure 150/83 H Pulse Oximetry 99 Oxygen Delivery 04/06/22 14:00 04/06/22 21:14 04/06/22 20:00 Temperature 96.7 F L 97.0 F L Pulse Rate 85 72 Respiratory Rate 15 18 Blood Pressure 147/70 H 143/74 H Pulse Oximetry 98 99 Oxygen Delivery Room Air 04/07/22 06:23 04/07/22 10:06 Temperature 98.0 F Pulse Rate 72 70 Respiratory Rate 16 Blood Pressure 116/65 Pulse Oximetry 97 Oxygen Delivery Intake/Output Intake/Output: Intake & O
[2022-04-07 12:29] LABS: Glucose Point of Care 148 mg/dl (65-105)
[2022-04-07 14:00] VITALS: BP 135/74; PULSE 74; RESP 20; TEMP 36.6; O2SAT 98
--- NOTE | 2022-04-07 15:40 | WPDONCPN ---
Progress Note: A/P (1) Mass of multiple sites of liver Code(s): R16.0 - Hepatomegaly, not elsewhere classified Status: Acute (2) Type 2 diabetes mellitus with peripheral neuropathy Code(s): E11.42 - Type 2 diabetes mellitus with diabetic polyneuropathy Status: Acute (3) Personal history of malignant neoplasm of prostate Code(s): Z85.46 - Personal history of malignant neoplasm of prostate Status: Acute - Additional Plan results of biopsy pending We can follow as outpatient upon discharge to discuss treatment options - Time Spent With Patient Total time spent is greater than 50% in coordination of care (as documented) at patient's floor/unit and/or counseling patient: less than 15 minutes Subjective Interval history: Liver biopsy was done patient is still confused, MRI Brain GUILLERMO is concerned about poor oral intake awaiting results of biopsy Review of Systems - Review of Systems All systems reviewed & are unremarkable except as noted in HPI and bel - Neurologic Reports behavioral changes Exam Vital signs: Temp Pulse Resp BP Pulse Ox O2 Del Method 36.6 C 74 20 135/74 98 Room Air 04/07/22 14:00 04/07/22 14:00 04/07/22 14:00 04/07/22 14:00 04/07/22 14:00 04/06/22 20:00 - Constitutional no acute distress PN: Objective Data - Labs CBC & Chem 7: 04/05/22 09:07 04/05/22 09:07 Labs: Laboratory Results - last 24 hr 04/06/22 04/06/22 04/07/22 16:34 21:16 08:08 POC Capillary Glucose 124 H 124 H 134 H 04/07/22 12:01 POC Capillary Glucose 148 H
[2022-04-07 16:55] LABS: Glucose Point of Care 147 mg/dl (65-105)
[2022-04-07 23:49] VITALS: BP 124/70; PULSE 68; RESP 16; TEMP 36.6; O2SAT 98
[2022-04-07 23:50] VITALS: BMI 27.6
[2022-04-08] MEDS: SODIUM CHLORIDE 0.9% IV 1,000 ML 125 ML IV CONT ×2 (01:35→10:08)
[2022-04-08 07:05] VITALS: BP 122/60; PULSE 64; RESP 18; TEMP 36.6; O2SAT 97
[2022-04-08 09:01] LABS: Glucose Point of Care 113 mg/dl (65-105)
[2022-04-08 10:06] VITALS: PULSE 64
[2022-04-08] MEDS: CYANOCOBALAMIN 1,000 MCG TABLET 1000 MCG PO (10:06)
[2022-04-08] MEDS: METOPROLOL SUCCINATE EXT REL 25 MG TABCR PO (10:06)
[2022-04-08] MEDS: MULTIVITAMINS /C LUTEIN (CENTRUM SILVER) TABLET *BKC 1 TAB PO (10:06)
[2022-04-08] MEDS: LOSARTAN POTASSIUM 50 MG TABLET PO (10:06)
[2022-04-08] MEDS: CHOLECALCIFEROL 1,000 UNITS TABLET 2000 UNITS PO (10:06)
[2022-04-08] MEDS: OMEGA 3 POLYUNSAT FATTY ACIDS 1 GM CAP PO (10:06)
[2022-04-08] MEDS: LOVASTATIN 20 MG TABLET PO (10:07)
[2022-04-08 10:17] VITALS: O2SAT 97
[2022-04-08 12:43] LABS: Glucose Point of Care 119 mg/dl (65-105)
[2022-04-08] MEDS: HYDROcodone/acetaminophen (*CRX) 5-325 MG TABLET 1 TAB PO (12:52)
--- NOTE | 2022-04-08 13:43 | PM.DS ---
DS: Admitting Diagnosis Discharge Date April 08, 2022 Admitting Diagnosis Stage IV melanoma DS: Discharge Diagnosis Discharge Diagnosis (1) Mass of multiple sites of liver: Code(s): R16.0 - Hepatomegaly, not elsewhere classified Status: Acute Assessment and Plan: Question etiology. CT-guided biopsy plan. Oncology consult. (2) Transaminitis: Code(s): R74.01 - Elevation of levels of liver transaminase levels Status: Acute Assessment and Plan: Secondary to above (3) Acute hyponatremia: Code(s): E87.1 - Hypo-osmolality and hyponatremia Status: Acute Assessment and Plan: Sodium level improved (4) Type 2 diabetes mellitus with peripheral neuropathy: Code(s): E11.42 - Type 2 diabetes mellitus with diabetic polyneuropathy Status: Acute Assessment and Plan: Sliding scale insulin as needed (5) Dehydration: Code(s): E86.0 - Dehydration Status: Acute Assessment and Plan: IV fluids (6) Ascites: Qualifiers: Ascites type: malignant Qualified Code(s): R18.0 - Malignant ascites Code(s): R18.8 - Other ascites Status: Acute Assessment and Plan: See plan above (7) Altered mental status: Qualifiers: Altered mental status type: disorientation Qualified Code(s): R41.0 - Disorientation, unspecified Code(s): R41.82 - Altered mental status, unspecified Status: Acute Assessment and Plan: Question etiology. No lesions noted in the brain. Question baseline. Monitor. No focal neurological deficits. Imaging negative DS: Summary Hospital Course Hospital Course: Patient was admitted for abdominal pain had a CT scan which showed liver Mets. Underwent biopsy which showed melanoma. Patient was diagnosed with stage IV melanoma and after discussion with family decision was to make the patient hospice as he is not eating much and not drinking much and not having any significant quality of life. Patient will be discharged on hospice Time Spent with Patient Time attestation: Total time spent providing and/or coordinating discharge services: Exam Narrative: Weight 90.2 kg BMI 29.4 Const: Other: Lying flat in bed, the condition but no acute distress HENMT: Other: Mucous membranes are tacky, no oral pharyngeal erythema, fair dentition Eyes: Other: No obvious scleral icterus, no significant conjunctival pallor, absent pupillary reflex on the right, left eye is reactive and has evidence of lens replacement Neck: Other: No tender lymphadenopathy, trachea midline Resp: Other: Equal expansion, nontender palpation Cardio: Other: Clear to auscultation bilaterally, no increased work of breathing GI: Other: Suspected hepatomegaly, tenderness and the almost right mid axillary line below the anterior ribs, otherwise abdomen is soft and nontender, normoactive bowel sounds, evidence of anterior lower abdominal scar from approximately 3 in below the umbilicus down to the pubis, as prior by inguinal scars are also noted : General: Yes bladder normal to palpation Male General Exam: Yes normal external exam Skin: Other: Generalized pallor, non jaundice Neuro: Other: Alert oriented to self, slowed responses, left nasal labial droop, expected abnormalities of the left eye exam due to prior surgery, follow simple commands, tongue is midline, no pronator drift, equal strength bilateral company laundry worker, intact DTR, no gross motor deficits noted on limited exam Extrem: Other: No clubbing, cyanosis or edema Psych: Appearance: grossly normal Speech and movement: Clear speech present, Slowed speech present (Psych) and Slowed movement present (Neuro) Affect: Sad affect present and Blunted affect present Attitude: cooperative Thought process: Impoverished thought process present DS: Data Data Completed and Pending Labs on day of discharge: Labs from last 24 hours 04/08/22 12
--- NOTE | 2022-04-08 14:40 | PCPTNOTE ---
Attempted to see patient for PT, however patient declined. Patient initially agreed to working with therapy and then declined and reported he wanted to rest today.
== END 2022-04-08 16:20 | disposition hospice, home (50) ==
LOC: ANHED 20:13 → ANH3MEDSUR 22:24
PROVIDERS: Emergency Medicine; Admitting Provider Internal Medicine; Emergency Provider Emergency Medicine; PCP Family Medicine; Visit Provider Chiropractor
DX: C78.7 Secondary malignant neoplasm of liver and intrahepatic bile duct (principal); R16.0 Hepatomegaly, not elsewhere classified; R74.01 Elevation of levels of liver transaminase levels; E87.1 Hypo-osmolality and hyponatremia; E11.42 Type 2 diabetes mellitus with diabetic polyneuropathy; E86.0 Dehydration; R18.8 Other ascites; R41.82 Altered mental status, unspecified; R90.82 White matter disease, unspecified; I11.9 Hypertensive heart disease without heart failure; E80.7 Disorder of bilirubin metabolism, unspecified; K21.9 Gastro-esophageal reflux disease without esophagitis; E78.2 Mixed hyperlipidemia; I25.10 Atherosclerotic heart disease of native coronary artery without angina pectoris; J32.0 Chronic maxillary sinusitis; Z20.822 Contact with and (suspected) exposure to COVID-19; Z95.5 Presence of coronary angioplasty implant and graft; H54.61 Unqualified visual loss, right eye, normal vision left eye; R63.0 Anorexia; Z68.27 Body mass index [BMI] 27.0-27.9, adult; Z85.05 Personal history of malignant neoplasm of liver; Z85.46 Personal history of malignant neoplasm of prostate; Z85.840 Personal history of malignant neoplasm of eye; Z79.84 Long term (current) use of oral hypoglycemic drugs; Z79.82 Long term (current) use of aspirin; Z79.899 Other long term (current) drug therapy; Z83.3 Family history of diabetes mellitus; Z82.49 Family history of ischemic heart disease and other diseases of the circulatory system
CPT/HCPCS: 36415; 47000; 51701; 70450; 70553; 71046; 71260; 74177; 76942; 80048; 80053; 81001; 82140; 82948; 85025; 85610; 85730; 87086; 88307; 88342; 93005; 96361; 96365; 97116; 97162; 97166; 97530; 99285; A9270; A9577; G0378; J0696; J7030; Q9967; U0003; U0005